=== PATIENT | female | born 1930 | race Caucasian/White ===

== ENCOUNTER → 2016-12-17 | Outpatient (CLI) | payer OTHER ==
[~2016-12-17] MED LIST: APRESOLINE100 MG PO; B COMPLETE1 EACH PO; BENZONATATE200 MG PO; BIAXIN500 MG PO; CEFDINIR300 MG PO; CO Q-10100 MG PO; Cardizem CD,Cartia X PO; Catapres PO; DILTIAZEM 24HR240 MG PO; DITROPAN XL10 MG PO; ESSENTIAL WOMA1 EAC1 PO; Feosol PO; HYDRALAZINE HC100 MG PO; Humibid LA,Mucinex PO; IMIPRAMINE HCL50 MG PO; LECITHIN400 MG PO; LOSARTAN POTAS100 MG PO; LOSARTAN-HCTZ1 EAC2 PO; MUCINEX600 MG PO; MULTI-BETIC TA1 EACH PO; OXYBUTYNIN CHLO10 MG PO; PROVENTIL,2.5 MG/0.5 IH; PYRIDIUM200 MG PO; Rocephin IV; SERTRALINE HCL100 MG PO; TAZTIA XT360 MG PO; TENORMIN25 MG PO; TOFRANIL50 MG PO; Tessalon Perle PO; ZINC50 M1 PO; Zoloft PO; [UNRECOGNIZED DRUG - OTHER] PO
== END | disposition home or self-care (01) ==
LOC: NUC 11:00
DX: R93.7 Abnormal findings on diagnostic imaging of other parts of musculoskeletal system (principal); G89.21 Chronic pain due to trauma
CPT/HCPCS: 78306; A9503